=== PATIENT | female | born 1980 | race African-American/Black ===

== ENCOUNTER 2016-08-18 10:37 | Emergency (ER) | payer SELFPAY ==
[~2016-08-18] VITALS: Ht 160 cm; Wt 77.3 kg
[2016-08-18 10:40] VITALS: BP 118/78; PULSE 98; RESP 20; TEMP 98.5; O2SAT 99
--- NOTE | 2016-08-18 11:08 | PD ---
Physical Exam Time Seen by Provider: 11:07 Narrative 36 y/o female here with R sided facial pain/swelling which started "a couple weeks ago." Vital signs reviewed. Seen at triage desk. Awaiting bed placement. Data Data Last Documented VS Vital Signs Date Time Temp Pulse Resp B/P Pulse Ox O2 Delivery O2 Flow Rate FiO2 08/18/16 10:40 98.5 98 20 118/78 99 Room Air MDM Medical Record Reviewed: Yes Supervised Visit with RACHEAL: No Scripts No Active Prescriptions or Reported Meds Neymar Richardson Aug 18, 2016 11:08
[2016-08-18] MEDS ORDERED: IBUP800T23 PO (12:32)
[2016-08-18] MEDS ORDERED: PENI500T PO (12:32)
[2016-08-18] MEDS ORDERED: PERI0.126 SWISH-SPIT (12:32)
--- NOTE | 2016-08-18 12:32 | PD ---
HPI Chief Complaint: Oral / Dental Pain or Problem Time Seen by Provider: 12:30 Travel History International Travel<30 days: No Contact w/Intl Traveler<30days: No Traveled to known affect area: No History of Present Illness HPI 36-year-old female presents to the emergency department for evaluation tooth pain. Constant, aching, 6 out of 10. Patient states that she had her look inside of her mouth and she believes that she has bump on her gum. Patient denies any trauma. States that the pain radiates along her maxilla teeth. No recent sinus infection or allergies. No fever or chills. No other symptoms to report this time. PFSH Past Medical History Hx Anticoagulant Therapy: No Cardiovascular Problems: No Chemotherapy: No Cerebrovascular Accident: No Diabetes: No Respiratory: No ?: Not : 4 Para: 3 Tubal Ligation: Yes Past Surgical History Hysterectomy: No Social History Alcohol Use: No Tobacco Use: No Substance Use: No Allergies-Medications (Allergen,Severity, Reaction): Coded Allergies: No Known Allergies (Verified , 08/18/16) Reported Meds & Prescriptions Reported Meds & Active Scripts Active Ibuprofen 800 Mg Tab 800 Mg PO Q8H PRN Peridex Liq (Chlorhexidine Gluconate (Mouth) Liq) 0.12% Soln 15 Ml SWISH-SPIT BID 14 Days Penicillin V Potassium 500 Mg Tab 500 Mg PO Q6H 10 Days Review of Systems Except as stated in HPI: all other systems reviewed are Neg Physical Exam Narrative GENERAL: Well-nourished, well-developed female patient in no acute distress SKIN: Focused skin assessment warm/dry. HEAD: Normocephalic. Atraumatic. No swelling. EYES: No scleral icterus. No injection or drainage. DENTAL: Poor dentition. Multiple dental caries. Mild gingival erythema. No appreciable abscess.. No malocclusion. NECK: Supple, trachea midline. No JVD or lymphadenopathy. CARDIOVASCULAR: Regular rate and rhythm without murmurs, gallops, or rubs. RESPIRATORY: Breath sounds equal bilaterally. No accessory muscle use. Data Data Last Documented VS Vital Signs Date Time Temp Pulse Resp B/P Pulse Ox O2 Delivery O2 Flow Rate FiO2 08/18/16 10:40 98.5 98 20 118/78 99 Room Air MDM Medical Decision Making Medical Screen Exam Complete: Yes Emergency Medical Condition: Yes Medical Record Reviewed: Yes Differential Diagnosis Dental caries versus abscess versus periodontal disease versus gingivitis Narrative Course 36-year-old female presents to the emergency room for evaluation dental pain. Patient has generalized poor dentition with multiple dental caries. She'll be treated for possible abscess development/gingivitis. Patient is encouraged to seek dental evaluation. She agrees to return immediately with any acute worsening symptoms. Diagnosis Primary Impression: Dentalgia Additional Impression: Dental caries Referrals: Dentist Primary Care Physician Patient Instructions: Dental Caries (GEN), General Instructions Additional Instructions: Follow-up with your primary care provider Seek dental evaluation Return immediately with any acute worsening symptoms Med/Other Pt SpecificInfo: Prescription(s) given Scripts Ibuprofen 800 Mg [id number] Mg PO Q8H PRN (Pain/Inflammation) #30 TAB Ref 0 Prov:Wendi Abbasi 08/18/16 Chlorhexidine Gluconate (Mouth) Liq (Peridex Liq)0.12% Soln15 Ml SWISH-SPIT BID 14 Days Ref 0 Prov:Wendi Abbasi 08/18/16 Penicillin V Potassium 500 Mg [id number] Mg PO Q6H 10 Days Ref 0 Prov:Wendi Abbasi 08/18/16 Disposition: 01 DISCHARGE HOME Condition: Stable Wendi Abbasi Aug 18, 2016 12:32
== END 2016-08-18 12:41 | disposition home or self-care (01) ==
LOC: NEPK 10:37
DX: K02.9 Dental caries, unspecified (principal); Z79.899 Other long term (current) drug therapy
CPT/HCPCS: 99284

== ENCOUNTER 2017-05-12 12:26 | Emergency (ER) | payer SELFPAY ==
[~2017-05-12] VITALS: Ht 160 cm; Wt 68.0 kg
[~2017-05-12 12:26] MED LIST: IBUP1TAB7 PO; PENI500T PO; PERI0.126 SWISH-SPIT
[2017-05-12 12:39] VITALS: BP 132/87; PULSE 82; RESP 18; TEMP 98.6; O2SAT 100
[2017-05-12] MEDS ORDERED: IBUP1TAB7 PO (15:44)
[2017-05-12] MEDS ORDERED: AMOX500C PO (15:44)
--- NOTE | 2017-05-12 15:45 | PD ---
HPI Chief Complaint: Oral / Dental Pain or Problem Time Seen by Provider: 14:50 Travel History International Travel<30 days: No Contact w/Intl Traveler<30days: No Traveled to known affect area: No History of Present Illness HPI 37-year-old female presents to the emergency department with complaint of left lower third molar that is broken and rubbing against her tongue causing her tongue to be painful and sore and causing difficulty swallowing because of her tongue pain 1 week. Also reports swollen lymph node in her left neck and thinks her tooth is infected. Reports dental pain to the left lower third molar also. Denies fever, vomiting. Denies sore throat, unusual drooling. Has not taken any medications or try any treatments to alleviate her symptoms. Rates pain 5/10. Aggravated with trying to swallow and rubbing up against the broken tooth. No known relieving factors. No primary care provider. No known allergies. Denies significant past medical history. Has no other medical complaints. No other modifying factors or associated signs and symptoms. PFSH Past Medical History Medical History: Denies Significant Hx Hx Anticoagulant Therapy: No Cardiovascular Problems: No Chemotherapy: No Cerebrovascular Accident: No Diabetes: No Diminished Hearing: No Respiratory: No Tetanus Vaccination: Unknown Influenza Vaccination: No ?: Not LMP: 05/12/17 : 4 Para: 3 Tubal Ligation: Yes Past Surgical History Gynecologic Surgery: Yes Hysterectomy: No Social History Alcohol Use: No Tobacco Use: No Substance Use: No Allergies-Medications (Allergen,Severity, Reaction): Coded Allergies: No Known Allergies (Verified Adverse Reaction, Unknown, 05/12/17) Reported Meds & Prescriptions Reported Meds & Active Scripts Active Amoxicillin 500 Mg Cap 500 Mg PO BID 10 Days Ibuprofen 800 Mg Tab 800 Mg PO Q6HR PRN Review of Systems Except as stated in HPI: all other systems reviewed are Neg Physical Exam Narrative GENERAL: Well-nourished, well-developed black female patient, in no acute distress; afebrile, nontoxic-appearing SKIN: Warm and dry. HEAD: Atraumatic. Normocephalic. No facial edema, erythema, tenderness on palpation. No lymphadenopathy. EYES: Pupils equal and round. No scleral icterus. No injection or drainage. ENT: Mucosa pink and moist. No erythema or exudates. No uvular edema. No uvular , palatal, or tonsillar deviation. Airway patent. EARS: Bilateral pinnae and external canals appear within normal limits. Bilateral tympanic membranes without erythema, dullness or perforation. MOUTH: Mucous membranes moist, no lesions, tongue and gums appear normal. Left lower third molar appears broken and with tenderness on palpation. Surrounding gingiva is without erythema, edema, drainage. No obvious abscess noted. NECK: Trachea midline. No lymphadenopathy. CARDIOVASCULAR: Regular rate. RESPIRATORY: No accessory muscle use. GASTROINTESTINAL: Rounded. MUSCULOSKELETAL: No obvious deformities. No clubbing. No cyanosis. No edema. NEUROLOGICAL: Awake and alert. Oriented 3. No obvious cranial nerve deficits. Motor grossly within normal limits. Normal speech. PSYCHIATRIC: Appropriate mood and affect; insight and judgment normal. Data Data Last Documented VS Vital Signs Date Time Temp Pulse Resp B/P (MAP) Pulse Ox O2 Delivery O2 Flow Rate FiO2 05/12/17 12:39 98.6 82 18 132/87 (102) 100 Orders Orders Ed Discharge Order (05/12/17 15:45) MDM Medical Decision Making Medical Screen Exam Complete: Yes Emergency Medical Condition: Yes Medical Record Reviewed: Yes Differential Diagnosis Broken teeth, tongue pain, dentalgia, dental abscess, infected dental caries Narrative Course 37-year-old female with left lower broken third molar. I placed a temporary dental cement over the tooth to keep from rubbing against the tongue. Patient will be prescribed amoxicillin for possible dental abscess. Amoxicillin, ibuprofen prescribed for home. Patient provided emergency dental information sheet for follow-up. Instructed patient to follow-up with dentist. Instructed patient to follow up with primary care provider. Patient verbalizes understanding and agreement with treatment plan. Patient is medically cleared and stable for discharge. Discussed reasons to return to the emergency department. Patient agrees with treatment plan. The patients vital signs are stable and the patient is stable for outpatient follow-up and treatment. Patient discharged home, stable and in no acute distress. Diagnosis Primary Impression: Broken tooth Qualified Codes: S02.5XXA - Fracture of tooth (traumatic), initial encounter for closed fracture Additional Impression: Tongue pain Referrals: [facility] Dentist Primary Care Physician Patient Instructions: Dental Abscess (ED), Dental Caries (ED), General Instructions, Toothache (ED) Additional Instructions: Complete full course of antibiotics Ibuprofen or Tylenol as directed and as needed to reduce pain and inflammation Avoid chewing foods on the affected side Warm or cool compresses to the affected area Follow-up with dentist Follow-up with primary care provider Return to emergency department immediately with worsening of symptoms Med/Other Pt SpecificInfo: Prescription(s) given Scripts Amoxicillin (Amoxicillin) 500 Mg Cap 500 MG PO BID for Infection for 10 Days, #20 CAP 0 Refills Prov: Aida Kraus 05/12/17 Ibuprofen (Ibuprofen) 800 Mg Tab 800 MG PO Q6HR Y for PAIN, #20 TAB 0 Refills Prov: Aida Kraus 05/12/17 Disposition: 01 DISCHARGE HOME Condition: Stable Aida Kraus May 12, 2017 15:45
== END 2017-05-12 15:56 | disposition home or self-care (01) ==
LOC: NEPD 12:26
DX: S02.5XXA Fracture of tooth (traumatic), initial encounter for closed fracture (principal); K14.6 Glossodynia; X58.XXXA Exposure to other specified factors, initial encounter
CPT/HCPCS: 99283